=== PATIENT | female | born 1955 | race Caucasian/White ===

== ENCOUNTER → 2017-04-16 | Outpatient (CLI) | payer BC ==
--- NOTE | ~2017-04-16 | BD1 ---
[facility] A Service of [facility] & [facility] RADIOLOGY TEXT RESULTS PATIENT: ARIA SALINAS LOCATION: [facility] : 55 UNIT #: [id number] AGE: [address]: Ness Tesfaye APRN SEX: F ORDER DR: [id number] [address] [address] [id number] O MR#: [id number] Acc #: [id number] NAME: ARIA SALINAS : 1955 SEX: F STUDY DATE/TIME: 04/16/2017 8:51 UNIT: [facility] ROOM: STUDY DESCRIPTION: Dexa Bone Dens 1+ Site Attending Physician: Ness Tesfaye A.P.R.N. Referring Physician: Ness Tesfaye A.P.R.N. Ordering Physician: Ness Tesfaye A.P.R.N. Primary Care Physician: Ness Tesfaye A.P.R.N. MEDICAL IMAGING REPORT This report is preliminary unless electronic signature is present. EXAM DXA scan, 04/16/2017 HISTORY Status post menopause with no hormone replacement therapy. Osteopenia. Thyroid medication Synthroid use for 20 years. Smoking history for 20 years. FINDINGS Bone mineral density in the lumbar spine from L1-L4 is 0.999 g/cm2 which is 1.5 standard deviations below the mean when compared to the young adult reference population which is characteristic of osteopenia. This is 0.3 standard deviations above the mean when compared to the age-matched population. Bone mineral density in the left femoral neck was 0.69 g/cm2 which is 2.5 standard deviations below the mean when compared to the young adult reference population which is characteristic of osteoporosis. This is 0.9 standard deviations below the mean when compared to the age-matched population. Bone mineral density in the right femoral neck was 0.73 g/cm2 which is 2.2 standard deviations below the mean when compared to the young adult reference population which is characteristic of osteopenia. This is 0.6 standard deviations below the mean when compared to the age-matched population. IMPRESSION Bone mineral density in the lumbar spine and the right hip characteristic of osteopenia and within the left hip characteristic of osteoporosis. Dictated by... [facility] A Service of [facility] & [facility] RADIOLOGY TEXT RESULTS PATIENT: ARIA SALINAS LOCATION: [facility] : 55 UNIT #: [id number] AGE: [address]: Ness Tesfaye APRN SEX: F ORDER DR: Sukhwinder Sheppard M.D. THIS IS AN ELECTRONICALLY VERIFIED REPORT Sukhwinder Sheppard M.D. at 04/16/2017 5:04 PM Anay TD: 04/16/2017 13:00 JOB #: [id number] MEDICAL IMAGING REPORT Page 1 of 1
--- NOTE | ~2017-04-16 | MY11 ---
[facility] A Service of [facility] & [facility] RADIOLOGY TEXT RESULTS PATIENT: ARIA SALINAS [facility] : 55 UNIT #: [id number] AGE: [address]: Ness Tesfaye APRN SEX: F ORDER DR: [id number] [address] [address] [id number] O MR#: [id number] Acc #: [id number] NAME: ARIA SALINAS : 1955 SEX: F STUDY DATE/TIME: 04/16/2017 9:05 UNIT: [facility] ROOM: STUDY DESCRIPTION: MY Mammogram Screening Dig Kunal Attending Physician: Ness Tesfaye A.P.R.N. Referring Physician: Ness Tesfaye A.P.R.N. Ordering Physician: Ness Tesfaye A.P.R.N. Primary Care Physician: Ness Tesfaye A.P.R.N. MEDICAL IMAGING REPORT This report is preliminary unless electronic signature is present. EXAM Digital screening mammogram 04/16/2017 [facility]. HISTORY 62-year-old woman, positive family history, maternal grandmother. Annual screen, COMPARISON Outside mammograms 05/15/2008, 12/03/2011 [facility]. FINDINGS Digital imaging of each breast was completed utilizing screening protocol. Review includes FDA-approved CAD device. Breast parenchyma is partially fatty replaced. Mild fibronodular opacities remain upper outer quadrants bilaterally with stable dominance right breast. Subareolar duct prominence is slightly dominant on the right as well. I see no suspicious mass. There are no interval occurring microcalcifications and no architectural distortion. IMPRESSION Benign mammogram. Annual screening recommended. Patients over the age of 40 are entered into a reminder system with target due date for the next mammogram. BIRADS: 2 Benign finding. Dictated by... Vinod Ornelas M.D. THIS IS AN ELECTRONICALLY VERIFIED REPORT Vinod Ornelas M.D. at 04/21/2017 1:03 PM JBB/bd [facility] A Service of [facility] & [facility] RADIOLOGY TEXT RESULTS PATIENT: ARIA SALINAS LOCATION: [facility] #: [id number] : 55 UNIT #: [id number] AGE: [address]: Ness Tesfaye APRN SEX: F ORDER DR: TD: 04/21/2017 12:18 JOB #: [id number] MEDICAL IMAGING REPORT Page 1 of 1
== END | disposition home or self-care (01) ==
LOC: SMAM 08:10
DX: Z12.31 Encounter for screening mammogram for malignant neoplasm of breast (principal); M85.80 Other specified disorders of bone density and structure, unspecified site; Z78.0 Asymptomatic menopausal state; Z80.3 Family history of malignant neoplasm of breast
CPT/HCPCS: 77080; G0202